=== PATIENT | male | born 1960 | race Caucasian/White ===

== ENCOUNTER → 2017-08-17 | Outpatient (CLI) | payer OTHER ==
[2017-08-13 14:52] VITALS: BMI 25.7
[2017-08-17 13:03] VITALS: BP 149/75; PULSE 85; RESP 20
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
== END | disposition home or self-care (01) ==
LOC: PNWHC3 12:30
PROVIDERS: ATTEND Anesthesiology
DX: G89.29 Other chronic pain (principal); M54.2 Cervicalgia; M51.26 Other intervertebral disc displacement, lumbar region; M51.36 Other intervertebral disc degeneration, lumbar region; K21.9 Gastro-esophageal reflux disease without esophagitis; I10 Essential (primary) hypertension; F17.200 Nicotine dependence, unspecified, uncomplicated; J43.9 Emphysema, unspecified; Z90.89 Acquired absence of other organs; Z98.890 Other specified postprocedural states; Z79.82 Long term (current) use of aspirin; Z79.51 Long term (current) use of inhaled steroids; Z88.8 Allergy status to other drugs, medicaments and biological substances; Z86.718 Personal history of other venous thrombosis and embolism; Z79.891 Long term (current) use of opiate analgesic; Z79.1 Long term (current) use of non-steroidal anti-inflammatories (NSAID); Z71.6 Tobacco abuse counseling
CPT/HCPCS: 99211

== ENCOUNTER → 2018-08-09 | Outpatient (CLI) | payer OTHER ==
--- NOTE | 2018-08-09 11:10 | CT ---
EXAMINATION TYPE: CT angio abdomen pelvis DATE OF EXAM: 08/09/2018 COMPARISON: None HISTORY: Blockage of iliac arteries CT DLP: 645 mGycm CONTRAST: CTA thoracic and abdominal aorta with 3-D reconstruction is performed without Oral Contrast and with IV Contrast, patient injected with 100 mL of Isovue 370. Contrast CTA of the abdominal aorta was performed from the lung apex through the base of the pelvis. 3-D reconstruction imaging obtained at a separate workstation. CONTRAST CT ABDOMEN AND PELVIS ABDOMINAL AORTA: Aortic bypass graft is in place and intact. Densely calcified false pass abdominal aorta . Bypass graft is patent common iliac arteries and external iliac arteries being patent. There is non opacification of the internal iliac arteries bilaterally. No evidence for aneurysm or leak. No fistul a identified. LIVER/GB- No significant abnormality is seen. PANCREAS- No significant abnormality is seen. SPLEEN- No significant abnormality is seen. ADRENALS- No significant abnormality is seen. KIDNEYS/BLADDER- No significant abnormality is seen. BOWEL-sigmoid diverticulosis without diverticulitis. No bowel obstruction. Postoperative changes righ t hemicolon. GENITAL ORGANS: No gross abnormality seen. LYMPH NODES- No greater than 1cm abdominal or pelvic lymph nodes areappreciated. OSSEOUS STRUCTURES- No significant abnormality is seen. OTHER-supraumbilical fat-containing hernia. Right periumbilical Hernia containing a short segment of small bowel. No definite evidence for strangulation at this time. Correlate clinically. IMPRESSION- 1. Aortic bypass graft is intact without evidence for leak or obstruction. There is nonopacification of the internal iliac arteries bilaterally as noted above. 2. Right-sided periumbilical hernia containing a short segment of small bowel.
== END ==
LOC: RADCTMAIN 08:16
PROVIDERS: ATTEND Thoracic Surgery (Cardiothoracic Vascular Surgery)
DX: I70.213 Atherosclerosis of native arteries of extremities with intermittent claudication, bilateral legs (principal); K42.9 Umbilical hernia without obstruction or gangrene; Z95.828 Presence of other vascular implants and grafts
CPT/HCPCS: 74174; Q9967

== ENCOUNTER 2020-06-02 12:01 | Emergency (ER) | payer OTHER ==
[2020-06-02 12:10] VITALS: RESP 20
[2020-06-02] MEDS ORDERED: MORPHINE SULFATE 4 MG/ML SYRINGE IVP STA ×2 (12:21→13:21)
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
[2020-06-02 12:44] LABS: Basophils # (A) 0.2 k/uL (0-0.2); Basophils % (A) 2 %; Eosinophils # (A) 0.4 k/uL (0-0.7); Eosinophils % (A) 3 %; Lymphocytes # (A) 4.8 k/uL (1.0-4.8); Lymphocytes % (A) 40 %; MCH 32.3 pg (25.0-35.0); Mean Platelet Volume 6.7; Monocytes # (A) 0.6 k/uL (0-1.0); Monocytes % (A) 5 %; Neutrophils # (A) 5.7 k/uL (1.3-7.7); Neutrophils % (A) 48 %; Platelet Count 223 k/uL (150-450); RBC 4.95 m/uL (4.30-5.90); RDW 12.6 % (11.5-15.5); WBC 11.8 k/uL (3.8-10.6)
[2020-06-02 12:46] LABS: Appearance,Urine Clear (Clear); Bilirubin,Urine Negative (Negative); Blood,Urine Negative (Negative); Color,Urine Yellow; Glucose,Urine (UA) Negative (Negative); Ketones,Urine Negative (Negative); Leukocyte Esterase,Urine Negative (Negative); Nitrite,Urine Negative (Negative); PH, Urine 5.5 (5.0-8.0); Protein,Urine Negative (Negative); Specific Gravity,Urine 1.028 (1.001-1.035); Urobilinogen,Urine <2.0 mg/dL (<2.0)
[2020-06-02 12:56] LABS: ALT 25 U/L (4-49); AST 21 U/L (17-59); African American GFR (CKD) >90 (>60 ml/min/1.73 sqM); Alkaline Phosphatase 82 U/L (38-126); Anion Gap 9 mmol/L; Blood Urea Nitrogen 20 mg/dL (9-20); Calcium 9.6 mg/dL (8.4-10.2); Carbon Dioxide 24 mmol/L (22-30); Chloride 105 mmol/L (98-107); Glucose 255 mg/dL (74-99); Magnesium 1.9 mg/dL (1.6-2.3); Non-African American GFR(CKD) >90 (>60 ml/min/1.73 sqM); Potassium 4.4 mmol/L (3.5-5.1); Sodium 138 mmol/L (137-145); Total Bilirubin 0.7 mg/dL (0.2-1.3); Total Protein 7.1 g/dL (6.3-8.2)
[2020-06-02 13:00] LABS: INR 0.9 (<1.2); Partial Thromboplastin Time 24.5 sec (22.0-30.0); Prothrombin Time 10.2 sec (9.0-12.0)
[2020-06-02] MEDS ORDERED: ONDANSETRON 4 MG/2 ML VIAL IVP STA (13:21)
--- NOTE | 2020-06-02 13:44 | CT ---
EXAMINATION TYPE: CT abdomen pelvis w con DATE OF EXAM: 06/02/2020 COMPARISON: CT 08/09/2018 HISTORY: Trauma to Right flank 2 days ago. increased pain today. CT DLP: 809.5 mGycm Automated exposure control for dose reduction was used. TECHNIQUE: Helical acquisition of images from the lung bases through the pelvis have been completed. CONTRAST: Performed without Oral Contrast and with IV Contrast, patient injected with 100 mL of Isovue 300. FINDINGS: LUNG BASES: No significant abnormality is appreciated. AORTA: Patient shows aortobifemoral bypass graft which is patent, there are surgical clips, atheroma tous change within the abdominal aorta LIVER/GB: Liver shows low attenuation likely due to hepatic steatosis. Gallbladder is within normal l imits. PANCREAS: No significant abnormality is seen. SPLEEN: No significant abnormality is seen. ADRENALS: No significant abnormality is seen. KIDNEYS: No significant abnormality is seen. REPRODUCTIVE ORGANS: No significant abnormality is seen BOWEL: Postop change noted at the level of the right colon, appendix is not seen. There is an anteri or abdominal wall hernia at multiple levels in the midline, bowel loop is coursing to the level of th e skin at the level of the umbilicus, there is no evident bowel obstruction, findings are similar to prior exam. Some colonic wall thickening is present in the rectosigmoid region. FREE AIR: No Free Air visible. ASCITES: None visible. PELVIC ADENOPATHY: None visualized. RETROPERITONEAL ADENOPATHY: No Retroperitoneal Adenopathy visible. URINARY BLADDER: No significant abnormality is seen. OSSEOUS STRUCTURES: Posterior 11th rib fracture is present without displacement on the right. IMPRESSION: MULTIPLE ANTERIOR ABDOMINAL WALL HERNIAS, SMALL BOWEL LOOP IS PRESENT AT THE UMBILICAL LEVEL WITHOUT EVIDENT OBSTRUCTION ON PREVIOUS EXAM. POSTOP CHANGES. PROBABLE HEPATIC STEATOSIS. NO FREE FLUID TO SUGGEST INTRA-ABDOMINAL INJURY, NO EVIDENT SOLID ORGAN INJURY. CORRELATE TO EXCLUDE COLITIS, DIFFICU LT TO EXCLUDE A MUCOSAL LESION ON THE BASIS OF THIS EXAM WITHIN THE RECTOSIGMOID COLON. Right 11th po sterior rib fracture.
--- NOTE | 2020-06-02 14:17 | XR ---
EXAMINATION TYPE: XR chest 2V DATE OF EXAM: 06/02/2020 COMPARISON: NONE HISTORY: Pain after a fall TECHNIQUE: 2 views FINDINGS: Heart and mediastinum are normal. Lungs are clear. Diaphragm is normal. Bony thorax appears normal. IMPRESSION: Normal chest.
[2020-06-02 14:36] VITALS: BP 144/65; PULSE 65; TEMP 98.3
== END 2020-06-02 14:37 | disposition home or self-care (01) ==
LOC: EC 12:01
DX: S22.31XA Fracture of one rib, right side, initial encounter for closed fracture (principal); J44.9 Chronic obstructive pulmonary disease, unspecified; K21.9 Gastro-esophageal reflux disease without esophagitis; F17.200 Nicotine dependence, unspecified, uncomplicated; Z79.899 Other long term (current) drug therapy; Z88.8 Allergy status to other drugs, medicaments and biological substances; Z91.048 Other nonmedicinal substance allergy status; Z90.49 Acquired absence of other specified parts of digestive tract; W00.0XXA Fall on same level due to ice and snow, initial encounter
CPT/HCPCS: 99284; 96374; 96375; 96376; 36415; 80053; 83735; 85025; 85610; 85730; 81003; 71046; 74177; J2270; J2405; Q9967

== ENCOUNTER 2021-08-30 03:37 | Observation (INO) | payer OTHER ==
[2021-08-30] MEDS ORDERED: ONDANSETRON 4 MG/2 ML VIAL IVP STA (03:51)
[2021-08-30] MEDS ORDERED: SODIUM CHLORIDE 0.9% 1,000 ML IV STA (03:51)
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
[2021-08-30] MEDS: MORPHINE SULFATE 4 MG/ML SYRINGE IV STA ×2 (04:31→04:36)
[2021-08-30 04:50] LABS: ALT 23 U/L (4-49); AST 23 U/L (17-59); African American GFR (CKD) >90 (>60 ml/min/1.73 sqM); Albumin 4.2 g/dL (3.5-5.0); Alkaline Phosphatase 98 U/L (38-126); Amylase 73 U/L (30-110); Anion Gap 8 mmol/L; Blood Urea Nitrogen 21 mg/dL (9-20); Calcium 9.4 mg/dL (8.4-10.2); Carbon Dioxide 25 mmol/L (22-30); Chloride 103 mmol/L (98-107); Glucose 206 mg/dL (74-99); Lipase 591 U/L (23-300); Non-African American GFR(CKD) >90 (>60 ml/min/1.73 sqM); Potassium 4.3 mmol/L (3.5-5.1); Sodium 136 mmol/L (137-145); Total Bilirubin 0.9 mg/dL (0.2-1.3); Total Protein 7.3 g/dL (6.3-8.2)
--- NOTE | 2021-08-30 05:06 | CT ---
EXAMINATION TYPE: CT abdomen pelvis w con DATE OF EXAM: 08/30/2021 COMPARISON: 06/02/2020 HISTORY: generalized abdominal pain x 5 days. prior on PACS. CT DLP: 719.7 mGycm Automated exposure control for dose reduction was used. CONTRAST: Performed with IV Contrast, patient injected with 100ml mL of Isovue 300. Images obtained from the diaphragm to the floor of the pelvis with IV contrast. The lung bases are clear. No pleural effusion. Heart size is normal. No pericardial effusion. Liver s pleen pancreas stomach and gallbladder appear normal. The bile ducts are not dilated. There is no adrenal mass. Kidneys show satisfactory contrast opacification. There is no hydronephrosi s. Ureters are not dilated. Bladder distends smoothly. Delayed images show normal renal excretion. Th ere is no retroperitoneal adenopathy. There is aortoiliac bypass graft. There is thrombosis apparentl y and previous bypass graft. There is thrombosis of the lower [place] iliac arteries. There is no retroperit love mass. The bladder distends smoothly. There is no inguinal hernia. No free fluid in the pelvis. There are surgical clips at the hepatic flexure of the colon. There is a periumbilical hernia that co ntains small bowel with some incarceration. No definite bowel obstruction. The lumbar vertebra show normal alignment. Disc spaces are normal. Bony pelvis is intact. The hip carly nts appear intact. IMPRESSION: Atherosclerotic vascular disease. Periumbilical incarcerated ventral hernia measures 3.5 x 2 cm and not significantly different than la st exam. No definite bowel obstruction. Previous right colon surgery. No acute abnormality of the abd omen and pelvis. No significant change compared to the old exam.
[2021-08-30 05:32] LABS: Basophils # (A) 0.1 k/uL (0-0.2); Basophils % (A) 1 %; Eosinophils # (A) 0.2 k/uL (0-0.7); Eosinophils % (A) 1 %; HGB 16.8 gm/dL (13.0-17.5); Lymphocytes # (A) 5.6 k/uL (1.0-4.8); Lymphocytes % (A) 33 %; MCH 32.7 pg (25.0-35.0); MCHC 33.6 g/dL (31.0-37.0); MCV 97.2 fL (80.0-100.0); Mean Platelet Volume 7.7; Monocytes # (A) 0.9 k/uL (0-1.0); Monocytes % (A) 5 %; Neutrophils # (A) 9.9 k/uL (1.3-7.7); Neutrophils % (A) 58 %; Platelet Count 222 k/uL (150-450); RBC 5.14 m/uL (4.30-5.90); RDW 12.9 % (11.5-15.5); WBC 16.9 k/uL (3.8-10.6)
[2021-08-30] MEDS ORDERED: HYDROmorphone 0.5 MG/0.5 ML SYRINGE IVP STA (05:36)
[2021-08-30] MEDS ORDERED: ONDANSETRON 4 MG/2 ML VIAL IVP PRN (05:52)
[2021-08-30] MEDS ORDERED: NALOXONE 0.4 MG/ML 1 ML VIAL IV PRN ×2 (05:52→09:05)
[2021-08-30] MEDS: SODIUM CHLORIDE 0.9% 1,000 ML IV SCH ×3 (07:16→23:42)
[2021-08-30 07:53] LABS: Appearance,Urine Clear (Clear); Bilirubin,Urine Negative (Negative); Blood,Urine Negative (Negative); Color,Urine Light Yellow; Glucose,Urine (UA) Negative (Negative); Ketones,Urine Negative (Negative); Leukocyte Esterase,Urine Negative (Negative); Nitrite,Urine Negative (Negative); PH, Urine 5.5 (5.0-8.0); Protein,Urine Negative (Negative); Urobilinogen,Urine <2.0 mg/dL (<2.0)
[2021-08-30 08:02] LABS: Specific Gravity,Urine >1.050 (1.001-1.035)
[2021-08-30] MEDS: HYDROmorphone 1 MG/ML 1 ML SYRINGE IVP PRN ×3 (08:38→20:31)
[2021-08-30] MEDS: NICOTINE 21MG/24HR PATCH TRANSDERM SCH (08:42)
[2021-08-30] MEDS ORDERED: HYDROcodone/APAP 5-325MG 1 EACH TAB PO PRN (09:05)
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
[2021-08-30] MEDS: lisinopriL 20 MG TAB PO SCH (16:26)
[2021-08-30] MEDS: atenoloL 50 MG TAB PO SCH (16:26)
[2021-08-30] MEDS: HEPARIN SODIUM,PORCINE/PF 5,000 UNIT/0.5 ML SYRINGE SQ SCH (16:26)
[2021-08-31] MEDS: HEPARIN SODIUM,PORCINE/PF 5,000 UNIT/0.5 ML SYRINGE SQ SCH ×4 (00:18→23:48)
[2021-08-31] MEDS: HYDROmorphone 1 MG/ML 1 ML SYRINGE IVP PRN ×5 (02:17→23:44)
[2021-08-31] MEDS: SODIUM CHLORIDE 0.9% 1,000 ML IV SCH ×3 (04:57→23:47)
--- NOTE | 2021-08-31 07:42 | XR ---
EXAMINATION TYPE: XR abdomen 2V DATE OF EXAM: 08/31/2021 COMPARISON: 08/30/2021 CT abdomen and pelvis INDICATION: Follow-up possible small bowel obstruction TECHNIQUE: Single view abdomen upright view. Additional supine views were obtained. FINDINGS: Colonic bowel gas is present. Nonspecific small bowel gas is present. No free air is under the diaphr agm. No suspicious air-fluid levels or differential air-fluid levels are present. Psoas margins are n ormal. Organomegaly is not present. There is a vascular stent within the mid abdomen. IMPRESSION: 1. Nonspecific abdomen. 2. No suspicious changes to suggest small bowel obstruction.
[2021-08-31] MEDS: lisinopriL 20 MG TAB PO SCH (08:11)
[2021-08-31] MEDS: NICOTINE 21MG/24HR PATCH TRANSDERM SCH (08:11)
[2021-08-31] MEDS: atenoloL 50 MG TAB PO SCH (08:11)
[2021-08-31 11:34] LABS: HCT 44.1 % (39.6-50.0); HGB 14.5 g/dL (13.0-17.0); MCH 31.9 pg (27.0-32.0); MCHC 32.9 g/dL (32.0-37.0); MCV 96.9 fL (80.0-97.0); Mean Platelet Volume 9.5 fL (9.5-12.2); NRBC Per 100 WBC 0 /100 WBCS (0.0-0.0); Platelet Count 195 X 10*3/uL (140-440); RBC 4.55 X 10*6/uL (4.40-5.60); RDW 12.1 % (11.5-14.5); WBC 14.88 X 10*3/uL (4.50-10.00)
[2021-08-31 11:44] LABS: African American GFR (CKD) 108.7 (60.0-200.0); Albumin 3.5 g/dL (3.8-4.9); Albumin/Globulin Ratio 1.59 (1.60-3.17); Anion Gap 9.9 mmol/L (10.00-18.00); BUN/Creat Ratio 11.56 Ratio (12.00-20.00); Blood Urea Nitrogen 10.4 mg/dL (9.0-27.0); Calcium 8.8 mg/dL (8.7-10.3); Carbon Dioxide 24.1 mmol/L (20.0-27.5); Globulin 2.2 g/dL (1.6-3.3); Non-African American GFR(CKD) 93.8 (60.0-200.0); Phosphorus 2.9 mg/dL (2.4-5.1); Potassium 4.3 mmol/L (3.5-5.5); Total Bilirubin 0.6 mg/dL (0.30-1.20); Total Protein 5.7 g/dL (6.2-8.2)
[2021-08-31 12:04] LABS: Basophils # (A) 0.05 X 10*3/uL (0.00-0.10); Basophils % (A) 0.3 %; Eosinophils # (A) 0.22 X 10*3/uL (0.04-0.35); Eosinophils % (A) 1.5 %; Immature Grans, Automated 0.5 %; Lymphocytes # (A) 7.23 X 10*3/uL (0.90-5.00); Lymphocytes % (A) 48.6 %; Monocytes # (A) 0.99 X 10*3/uL (0.20-1.00); Monocytes % (A) 6.7 %; Neutrophils # (A) 6.31 X 10*3/uL (1.80-7.70); Neutrophils % (A) 42.4 %
--- NOTE | 2021-08-31 13:06 | P.PN ---
Subjective Progress Note Date: 08/31/21 Principal diagnosis: Abdominal pain This is a 60-year-old male who presented to the hospital with complaints of abdominal pain. He reports that the pain started in the lower abdomen at his old incision site and movements to above the umbilicus. Patient reports that he has had pain for about 6 days. He reports increase in pain after eating. He has been dealing with constipation for the past 6 days. He took a laxative yesterday and was able to have a normal bowel movement. His past surgical history includes aortoiliac bypass graft with stent in the right groin, hernia repair and appendectomy. Patient had computed tomography scan abdomen and pelvis demonstrated. Umbilical incarcerated ventral hernia measuring 3.5 x 2 cm and not significant different the last exam. No evidence of bowel obstruction. 08/31/2021: Patient was seen and examined by surgical team and incarcerated ventral hernia was reduced. Patient reports that he is not having any significant pain as he was yesterday. He reports that he feels hunger pains he denies any nausea or vomiting and no fevers or chills. He is currently nothing by mouth awaiting surgical evaluation today. Objective - Vital Signs Vital signs: Vital Signs Temp 97.6 F 08/31/21 11:18 Pulse 51 L 08/31/21 11:18 Resp 18 08/31/21 11:18 BP 156/76 08/31/21 11:18 Pulse Ox 96 08/31/21 11:18 Intake & Output 08/30/21 08/31/21 08/31/21 18:59 06:59 18:59 Intake Total 1560 Balance 1560 Weight 73.482 kg Intake: Intake, IV Titration 1560 Amount Sodium Chloride 0.9% 1, 1560 000 ml @ 130 mls/hr IV . Q7H42M [facility] Rx#:[id number] Other: Voiding Method Toilet Toilet Urinal Urinal - Exam Vital signs reviewed and stable. General: Nontoxic, no distress and appears stated age. Derm: Skin warm and dry, normal coloration for ethnicity. Head: Atraumatic, normocephalic and symmetric. Eyes: EOMs intact, no lid lag, and anicteric sclera Mouth: no lip lesions, mucus membranes moist Cardiovascular: regular rate and rhythm with normal S1S2, no murmur, positive posterior tibial pulses bilaterally, and cap refill < 2 seconds. Lungs: Respirations even, regular, and unlabored on room air. Lungs CTA bilaterally, no rhonchi, no rales, no wheezing, and no accessory muscle usage. Abdominal: Bowel sounds present, abdomen soft, significant midline scarring from previous surgeries, tenderness to palpation to epigastric, umbilical, and hypogastric regions. no guarding, no appreciable organomegaly. Abdominal hernias present. Ext: ROM intact. No gross muscle atrophy, no edema, no contractures Neuro: Speech clear, face symmetrical and CN II-XII grossly intact with no noted focal neuro deficits Psych: Alert and oriented to person, place, time, and situation. Appropriate and pleasant affect. - Labs CBC & Chem 7: 08/31/21 06:20 08/31/21 06:20 Labs: Abnormal Lab Results - Last 24 Hours (Table) 08/31/21 08/31/21 Range/Units 06:20 06:20 WBC 14.88 H (4.50-10.00) X 10*3/uL Immature Gran # 0.08 H (0.00-0.04) X 10*3/uL Lymphocytes # 7.23 H (0.90-5.00) X 10*3/uL Anion Gap 9.90 L (10.00-18.00) mmol/L BUN/Creatinine Ratio 11.56 L (12.00-20.00) Ratio Glucose 152 H (70-110) mg/dL AST 13 L (14-35) U/L Total Protein 5.7 L (6.2-8.2) g/dL Albumin 3.5 L (3.8-4.9) g/dL Albumin/Globulin Ratio 1.59 L (1.60-3.17) g/dL Assessment and Plan Plan: Abdominal pain .Umbilical incarcerated ventral hernia measuring 2.5 x 2 cm that contains small bowel -CT abdomen and pelvis with contrast positive for periumbilical incarcerated ventral hernia measuring 3.5 cm x 2 cm with no definitive bowel obstruction. -Gen. surgery consulted and following. -Patient's hernia appears to be now reduced. And pain has improved. -abdominal x-rays this morning shows no evidence of obstruction -Symptomatic care and pain management. Patient is still using IV Dilaudid which will need to be weaned off -Continuous IV fluid hydration. Diet per general surgery team -Monitor I's and O's Hypertension -Monitor vital signs and continue daily medication regimen with atenolol and enalapril. Peripheral arterial disease History of DVT with watchman's device -Patient reports watchman's device/filter is still in place and was unclear ab out when it was placed -Resume aspirin when okay with surgical team The patient is admitted with an anticipated greater than 2 midnight stay for evaluation of abdominal pain with concerns of incarcerated hernia CODE STATUS: Full code DVT prophylaxis: Heparin and patient reports having an watchman's device Discussed with: Patient and RN Anticipated discharge date: Clinical course to determine Disposition: Awaiting surgical clearance for discharge.
--- NOTE | 2021-08-31 14:10 | P.PN ---
Subjective Progress Note Date: 08/31/21 CHIEF COMPLAINT: Bowel obstruction HISTORY OF PRESENT ILLNESS: The patient is a 60-year-old admitted with a ventral hernia including bowel obstruction. Reports doing well today. He is passing flatus. Resolved abdominal pain. He has food from home at bedside. ROS: No reports of nausea and vomiting. No fevers or chills. No new chest pain. No productive sputum PHYSICAL EXAM: VITAL SIGNS: Reviewed CONSTITUTIONAL: Well developed and in no acute distress. EYES: Conjuctivae without sclera icterus. Extraocular movements grossly intact. HEAD, EARS, NOSE, THROAT: Moist buccal mucosa. Head is atraumatic, normocephalic. Hears conversational speech. No nasal drainage. RESPIRATORY: Non-labored respirations and equal bilateral excursions. CARDIOVASCULAR: Palpable 2+ radial pulses. ABDOMEN: No peritonitis MUSCULOSKELETAL: No gross deformity of the lower extremities noted. No clubbing. No cyanosis. SKIN: Good skin turgor. Well perfused. NEUROLOGIC: Cranial nerves II through XII grossly intact. No focal or lateralizing signs. PSYCH: Appropriate affect. Alert and oriented to person, place and time. CLINICAL LABS: Reviewed. STUDIES: Abdominal xray reviewed without bowel obstruction. This is my independent interpretation ASSESSMENT: 1. Bowel obstruction PLAN: 1. May start diet. Objective - Vital Signs Vital signs: Vital Signs Temp 97.6 F 08/31/21 11:18 Pulse 51 L 08/31/21 11:18 Resp 18 08/31/21 11:18 BP 156/76 08/31/21 11:18 Pulse Ox 96 08/31/21 11:18 Intake & Output 08/30/21 08/31/21 08/31/21 18:59 06:59 18:59 Intake Total 1560 Balance 1560 Weight 73.482 kg Intake: Intake, IV Titration 1560 Amount Sodium Chloride 0.9% 1, 1560 000 ml @ 130 mls/hr IV . Q7H42M [facility] Rx#:[id number] Other: Voiding Method Toilet Toilet Urinal Urinal - Labs CBC & Chem 7: 08/31/21 06:20 08/31/21 06:20 Labs: Abnormal Lab Results - Last 24 Hours (Table) 08/31/21 08/31/21 Range/Units 06:20 06:20 WBC 14.88 H (4.50-10.00) X 10*3/uL Immature Gran # 0.08 H (0.00-0.04) X 10*3/uL Lymphocytes # 7.23 H (0.90-5.00) X 10*3/uL Anion Gap 9.90 L (10.00-18.00) mmol/L BUN/Creatinine Ratio 11.56 L (12.00-20.00) Ratio Glucose 152 H (70-110) mg/dL AST 13 L (14-35) U/L Total Protein 5.7 L (6.2-8.2) g/dL Albumin 3.5 L (3.8-4.9) g/dL Albumin/Globulin Ratio 1.59 L (1.60-3.17) g/dL
[2021-09-01] MEDS: SODIUM CHLORIDE 0.9% 1,000 ML IV SCH ×2 (05:32→12:08)
[2021-09-01] MEDS: HEPARIN SODIUM,PORCINE/PF 5,000 UNIT/0.5 ML SYRINGE SQ SCH ×2 (08:45→15:17)
[2021-09-01] MEDS: NICOTINE 21MG/24HR PATCH TRANSDERM SCH (08:45)
[2021-09-01] MEDS: atenoloL 50 MG TAB PO SCH (08:45)
[2021-09-01] MEDS: lisinopriL 20 MG TAB PO SCH (08:46)
[2021-09-01 11:42] VITALS: BP 176/92; PULSE 60; RESP 16; TEMP 98.4
[2021-09-01] MEDS: HYDROmorphone 1 MG/ML 1 ML SYRINGE IVP PRN ×2 (12:05→15:20)
--- NOTE | 2021-09-01 14:27 | P.PN ---
Subjective Progress Note Date: 09/01/21 CHIEF COMPLAINT: Bowel obstruction HISTORY OF PRESENT ILLNESS: The patient is a 60-year-old admitted with a ventral hernia including bowel obstruction. He tolerated regular diet. He is ready to go home. ROS: No reports of nausea and vomiting. No fevers or chills. No new chest pain. No productive sputum PHYSICAL EXAM: VITAL SIGNS: Reviewed CONSTITUTIONAL: Well developed and in no acute distress. EYES: Conjuctivae without sclera icterus. Extraocular movements grossly intact. HEAD, EARS, NOSE, THROAT: Moist buccal mucosa. Head is atraumatic, normocephalic. Hears conversational speech. No nasal drainage. RESPIRATORY: Non-labored respirations and equal bilateral excursions. CARDIOVASCULAR: Palpable 2+ radial pulses. ABDOMEN: No peritonitis. Reducible ventral hernia. MUSCULOSKELETAL: No gross deformity of the lower extremities noted. No clubbing. No cyanosis. SKIN: Good skin turgor. Well perfused. NEUROLOGIC: Cranial nerves II through XII grossly intact. No focal or laterali zing signs. PSYCH: Appropriate affect. Alert and oriented to person, place and time. CLINICAL LABS: Reviewed. WBC improving. ASSESSMENT: 1. Bowel obstruction PLAN: 1. Stable from surgical standpoint for discharge Objective - Vital Signs Vital signs: Vital Signs Temp 98.4 F 09/01/21 11:30 Pulse 60 09/01/21 11:30 Resp 16 09/01/21 11:30 BP 176/92 09/01/21 11:30 Pulse Ox 96 09/01/21 11:30 Intake & Output 08/31/21 09/01/21 09/01/21 18:59 06:59 18:59 Intake Total 1560 Balance 1560 Intake: Intake, IV Titration 1560 Amount Sodium Chloride 0.9% 1, 1560 000 ml @ 130 mls/hr IV . Q7H42M [facility] Rx#:[id number] Other: Voiding Method Toilet Toilet Toilet Urinal Urinal Urinal # Voids 4 - Labs CBC & Chem 7: 08/31/21 06:20 08/31/21 06:20
--- NOTE | 2021-09-01 15:18 | P.DS ---
Providers Date of admission: 08/30/21 05:53 Expected date of discharge: 09/01/21 Attending physician: Lara Mcwilliams MD Consults: 08/30/21 05:53 Consult Physician Routine Consulting Provider: Josse Hawkins Consult Reason/Comments: hernia Do you want consulting provider notified?: Yes Primary care physician: Stated None Hospital Course: Patient is a very pleasant 60-year-old male with a past medical history of peripheral arterial disease with reports of previous surgery to aorta secondary to severe atherosclerosis and stent to right groin, hernia with previous repair, hypertension, appendectomy, DVT with watchman's device placed, COPD with continued nicotine dependence, GERD, anxiety and depression. Patient presented to the emergency department with a chief complaint of severe abdominal pain accompanied by nausea. Patient reports he initially began having some abdominal discomfort a few days ago but thought this was secondary to constipation as he reports he went 4 days without having a bowel movement and then had a liquid/soft bowel movement yesterday which somewhat seemed to relieve the pain. However patient reports awakening with severe pain and nausea. Patient reports pain was so significant he had to pickler helper his daughter to take him to the hospital. Patient reports having a high pain tolerance and has even pulled his own teeth without medication, but states this pain was the worst pain he has felt. Patient reports initially it was felt to hypogastric region and radiated upwards into umbilical and epigastric regions. Patient denies any vomiting, fevers, chills, diaphoresis, dizziness, lightheadedness, chest pain, palpitations, shortness of breath, or experiencing any difficulties or changes in his urinary function. Patient underwent full evaluation in the emergency department. CBC revealed leukocytosis with WBC count of 16.9, hyperglycemia with glucose of 206, elevated lipase of 591, and negative UTI. CT abdomen and pelvis with contrast positive for periumbilical incarcerated ventral hernia measuring 3.5 cm x 2 cm with no definitive bowel obstruction and findings of atherosclerotic vascular disease. Patient was admitted under our services with consultation to general surgery. His pain was well-controlled with Dilaudid and Hiko as needed. His diet was advanced from nothing by mouth to clear liquid diet which she tolerated without any nausea or vomiting. His leukocytosis was thought to be reactive in nature, he had no signs of active infection and trended down with repeat CBC. General surgery was consulted with regard to his incarcerated periumbilical ventral hernia and recommended outpatient follow-up. He was cleared from a surgery standpoint. He was seen and examined on 09/01/2021. He reported well- controlled pain and no nausea or vomiting. He was tolerating his diet well. Patient was requesting discharge home. He was advised to follow-up with his PCP within 3 days of discharge. Follow-up with general surgery Dr. Hawkins within 1 week of discharge. Patient was prescribed at 3 day course of Hiko as needed for his pain. Patient verbalized understanding of the plan. This complex discharge took about 45 minutes to complete. General: [non toxic], [no distress], [appears at stated age] Derm: [warm], [dry] Head: [atraumatic], [normocephalic], [symmetric] Eyes: [EOMI], [no lid lag], [anicteric sclera] Mouth: [no lip lesion], [mucus membranes moist] Cardiovascular: [S1S2 reg], [no murmur] Lungs: [CTA bilateral], [no rhonchi, no rales] , [no accessory muscle use] Abdominal: [soft], [nontender to palpation], [no guarding], [slow bowel sounds but positive in all 4 quadrants] Ext: [no gross muscle atrophy], [no edema], [no contractures] Neuro: [no focal neuro deficits] Psych: [Alert], [oriented], [appropriate affect] Discharge diagnosis: #Abdominal pain #Periumbilical ventral hernia #Leukocytosis #Elevated lipase #Nicotine abuse Chronic conditions: Hypertension, PAD, history DVT with watchman device Pertinent Studies: CT abdomen and pelvis Abdominal x-ray Patient Condition at Discharge: Stable Plan - Discharge Summary Discharge Rx Participant: No New Discharge Prescriptions: New Nicotine 21Mg/24Hr Patch [Habitrol] 1 patch TRANSDERM DAILY #30 patch HYDROcodone/APAP 5-325MG [Hiko 5-325] 1 each PO Q4HR PRN #18 tab PRN Reason: Mild Pain Continue Enalapril [Vasotec] 10 mg PO DAILY atenoloL [Tenormin] 50 mg PO DAILY Cholecalciferol [Vitamin D3 (25 Mcg = 1000 Iu)] 50 mcg PO DAILY Discharge Medication List Enalapril [Vasotec] 10 mg PO DAILY 08/13/17 [History] Cholecalciferol [Vitamin D3 (25 Mcg = 1000 Iu)] 50 mcg PO DAILY 08/30/21 [History] atenoloL [Tenormin] 50 mg PO DAILY 08/30/21 [History] HYDROcodone/APAP 5-325MG [Hiko 5-325] 1 each PO Q4HR PRN #18 tab 09/01/21 [Rx] Nicotine 21Mg/24Hr Patch [Habitrol] 1 patch TRANSDERM DAILY #30 patch 09/01/21 [Rx] Follow up Appointment(s)/Referral(s): None,Stated [Primary Care Provider] - 1-2 days Josse Hawkins MD [Medical Doctor] - 1 Week Activity/Diet/Wound Care/Special Instructions: Diet: Clear liquid diet Follow-up with your PCP within 3 days of discharge. Follow-up with general surgery within 1 week of discharge. Please take all medications as advised. Come back to the ED or call 911 for worsening abdominal pain, intractable nausea and vomiting, fever greater than 100.4F. Discharge Disposition: HOME SELF-CARE
== END 2021-09-01 16:20 | disposition home or self-care (01) ==
LOC: EC 03:37 → 5NMEDONC 05:53
PROVIDERS: ADMIT Internal Medicine; ATTEND Internal Medicine
DX: K42.0 Umbilical hernia with obstruction, without gangrene (principal); I70.8 Atherosclerosis of other arteries; J43.9 Emphysema, unspecified; I10 Essential (primary) hypertension; K21.9 Gastro-esophageal reflux disease without esophagitis; I73.9 Peripheral vascular disease, unspecified; R73.9 Hyperglycemia, unspecified; K59.00 Constipation, unspecified; D72.829 Elevated white blood cell count, unspecified; R74.8 Abnormal levels of other serum enzymes; M25.551 Pain in right hip; M25.552 Pain in left hip; F17.200 Nicotine dependence, unspecified, uncomplicated; F31.9 Bipolar disorder, unspecified; F41.9 Anxiety disorder, unspecified; F41.0 Panic disorder [episodic paroxysmal anxiety]; Z79.899 Other long term (current) drug therapy; Z88.8 Allergy status to other drugs, medicaments and biological substances; Z90.49 Acquired absence of other specified parts of digestive tract; Z86.718 Personal history of other venous thrombosis and embolism; Z95.818 Presence of other cardiac implants and grafts; Z87.828 Personal history of other (healed) physical injury and trauma; Z95.828 Presence of other vascular implants and grafts; Z98.890 Other specified postprocedural states; Z82.3 Family history of stroke
CPT/HCPCS: 96376 ×4; 96361 ×3; 96372 ×3; 96374; 96375; 99285; 36415; 80053 ×2; 82150; 83605; 83690; 83735; 84100; 85025 ×2; 81003; 74019; 74177; G0378 ×3; S4990 ×3; J2405; J1170 ×4; Q9967; J1644 ×3

== ENCOUNTER 2022-01-25 13:03 | Emergency (ER) | payer OTHER ==
[2022-01-25 13:12] VITALS: BP 133/77; PULSE 77; RESP 18; TEMP 98.3
[2022-01-25] MEDS ORDERED: dexAMETHasone 2 MG TAB PO STA (13:38)
[2022-01-25] MEDS ORDERED: KETOROLAC 15 MG/ML 1 ML VIAL IM STA (13:38)
--- NOTE | 2022-01-25 14:03 | XR ---
EXAMINATION TYPE: XR thoracic spine 2V DATE OF EXAM: 01/25/2022 CLINICAL HISTORY: pain TECHNIQUE: Frontal, lateral, and swimmer's view of thoracic spine are obtained. COMPARISON: None. FINDINGS: Thoracic spine show satisfactory alignment without evidence of acute fracture or dislocatio n. Vertebral body heights are preserved. Disc spaces are well preserved. Visualized ribs are unrem arkable. IMPRESSION: No acute fracture or dislocation is seen in the thoracic spine. ICD 10 NO FRACTURE, INIT IAL EVALUATION
--- NOTE | 2022-01-25 14:04 | XR ---
EXAMINATION TYPE: XR lumbar spine 2 or 3V DATE OF EXAM: 01/25/2022 CLINICAL HISTORY: pain TECHNIQUE: Three views of the lumbar spine are submitted. COMPARISON: None. FINDINGS: There are 5 lumbar type vertebral bodies identified. The lumbar spine shows satisfactory alignment w ithout evidence of acute fracture or dislocation. Vertebral body heights are within normal limits. Mo derate degenerative narrowing L4-5 and L5-S1. Right iliac stent noted. The overlying soft tissue appe ars unremarkable. IMPRESSION: No acute fracture or dislocation is seen in the lumbar spine. ICD 10 NO FRACTURE, INITIAL EVALUATION
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
[2022-01-25] MEDS ORDERED: ACET/COD 300 MG/30 MG STARTER PACK 6 TAB BTL PO STA (14:44)
== END 2022-01-25 15:51 | disposition home or self-care (01) ==
LOC: EC 13:03
DX: S39.012A Strain of muscle, fascia and tendon of lower back, initial encounter (principal); I10 Essential (primary) hypertension; J44.9 Chronic obstructive pulmonary disease, unspecified; F17.200 Nicotine dependence, unspecified, uncomplicated; Z79.899 Other long term (current) drug therapy; Z88.8 Allergy status to other drugs, medicaments and biological substances; X50.0XXA Overexertion from strenuous movement or load, initial encounter; Y92.009 Unspecified place in unspecified non-institutional (private) residence as the place of occurrence of the external cause
CPT/HCPCS: 96372 ×2; 99283 ×2; 72070; 72100; J8540; J1885

== ENCOUNTER 2022-02-06 09:44 | Emergency (ER) | payer OTHER ==
[2022-02-06 10:28] VITALS: TEMP 98.2
[2022-02-06] MEDS ORDERED: SODIUM CHLORIDE 0.9% 1,000 ML IV STA (12:41)
[2022-02-06] MEDS ORDERED: RX INFO: IV CONTRAST WAS GIVEN 1 EACH MISC MISCELLANE PRN (12:42)
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
[2022-02-06 13:28] LABS: ALT 31 U/L (4-49); AST 29 U/L (17-59); African American GFR (CKD) >90 (>60 ml/min/1.73 sqM); Albumin 3.9 g/dL (3.5-5.0); Alkaline Phosphatase 87 U/L (38-126); Anion Gap 10 mmol/L; Blood Urea Nitrogen 12 mg/dL (9-20); Calcium 9.1 mg/dL (8.4-10.2); Carbon Dioxide 23 mmol/L (22-30); Chloride 101 mmol/L (98-107); Glucose 330 mg/dL (74-99); Non-African American GFR(CKD) >90 (>60 ml/min/1.73 sqM); Sodium 134 mmol/L (137-145); Total Bilirubin 0.5 mg/dL (0.2-1.3); Total Protein 6.5 g/dL (6.3-8.2)
[2022-02-06 13:30] LABS: Potassium 5.2 mmol/L (3.5-5.1)
[2022-02-06 13:33] LABS: Basophils # (A) 0.1 k/uL (0-0.2); Basophils % (A) 1 %; Eosinophils # (A) 0.3 k/uL (0-0.7); Eosinophils % (A) 2 %; HCT 43.3 % (39.0-53.0); HGB 14.5 gm/dL (13.0-17.5); Lymphocytes # (A) 5.8 k/uL (1.0-4.8); Lymphocytes % (A) 40 %; MCH 31.7 pg (25.0-35.0); MCHC 33.4 g/dL (31.0-37.0); MCV 94.7 fL (80.0-100.0); Mean Platelet Volume 7.9; Monocytes # (A) 0.9 k/uL (0-1.0); Monocytes % (A) 6 %; Neutrophils # (A) 7.2 k/uL (1.3-7.7); Neutrophils % (A) 50 %; Platelet Count 236 k/uL (150-450); RBC 4.57 m/uL (4.30-5.90); WBC 14.5 k/uL (3.8-10.6)
[2022-02-06 13:35] LABS: INR 0.9 (<1.2); Partial Thromboplastin Time 25.1 sec (22.0-30.0); Prothrombin Time 9.8 sec (9.0-12.0)
[2022-02-06 13:57] LABS: RBC Morphology Normal
[2022-02-06 15:44] VITALS: BP 204/67; PULSE 57; RESP 16
[2022-02-06] MEDS ORDERED: MORPHINE SULFATE 4 MG/ML SYRINGE IVP STA (16:02)
--- NOTE | 2022-02-06 16:06 | CT ---
EXAMINATION TYPE: CT angio lower extremity LT DATE OF EXAM: 02/06/2022 2:44 PM COMPARISON: CT abdomen pelvis August 30, 2021 HISTORY: Arterial insufficiency left leg CT DLP: 1132.9 mGycm Automated exposure control for dose reduction was used. TECHNIQUE: CT midabdomen and pelvis with bilateral lower extremity runoff is Performed without and wi th IV Contrast, patient injected with 100 mL of Isovue 370. 3D reconstructed images are created on an independent workstation and reviewed.. FINDINGS: VASCULAR: Redemonstration of aortobifemoral graft only partially imaged on this study that has no ceferino w or complete occlusion along the visualized portion until there is some reconstitution at the common femoral artery level bilaterally in the bilateral groin. Smaller patent vessels throughout the abdom inal mesentery are seen. There is satisfactory flow without significant stenosis or occlusion along the right superficial femo ral artery into the popliteal artery with good trifurcation and bifurcation. There is adequate two ve ssel flow in the right leg. There is good flow in the left superficial femoral artery into the popliteal artery with satisfactory bifurcation into anterior tibial and tibial peroneal trunks with subsequent occlusion of the tibial peroneal artery shortly after its origin below the knee axial image 343. There is some reconstitution distal to this axial image 355. Length of occlusion roughly 2.5 cm coronal image 87. There is good t hree-vessel flow in the mid left leg slightly better than on the left leg. There is then abrupt occlu cynthia of the anterior tibial artery axial image 446 just above the distal tibial metadiaphysis level. OTHER: Persistent [place] ventral wall hernias containing fat and tiny mesenteric vessels along wit h one portion containing nonobstructing small bowel loop near the umbilicus axial image 37. Moderate wall thickening in the sigmoid colon of the anterior pelvis is nonspecific finding. Similar appearance seen on prior CT. There is area of heterogeneity suspected diminished perfusion posterior lower pole right kidney axial image 10 noted. Both kidneys are not completely imaged. Entire abdomen not completely imaged. IMPRESSION: LIVER/GB: Cholecystectomy clips are redemonstrated. PANCREAS: No significant abnormality is seen. SPLEEN: No significant abnormality is seen. ADRENALS: No significant abnormality is seen. KIDNEYS: No significant abnormality is seen. BOWEL: Suboptimal evaluation of bowel without enteric contrast. No suspicious small or large bowel di latation is seen.. UTERUS/ADNEXA: Uterus is surgically absent or atrophic in appearance. LYMPH NODES: No greater than 1cm abdominal or pelvic lymph nodes are appreciated. OSSEOUS STRUCTURES: No significant abnormality is seen. Lower extremities: No significant abnormality. OTHER: No significant additional abnormality is seen. 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 Proximal abdominal aorta and proximal aortic graft are not completely imaged to completely assess. There is short segment complet e occlusion of the left tibial peroneal trunk after anterior tibial artery takeoff. There is complete occlusion of the distal anterior tibial artery just proximal to the distal tibial metaphysis. Results communicated to ordering ER physician via telephone at time of dictation.
[2022-02-06] MEDS ORDERED: HEPARIN SODIUM 1,000 UN/ML (10ML VL) IV PRN (16:37)
[2022-02-06] MEDS ORDERED: HEPARIN SODIUM 1,000 UN/ML (10ML VL) IV ONE (16:37)
[2022-02-06] MEDS ORDERED: HEPARIN SOD,PORK IN 0.45% NACL 25,000 UNIT in 0.45% NACL 1 250ML.BAG IV SCH (16:45)
== END 2022-02-06 17:49 | disposition other institution (70) ==
LOC: EC 09:44
DX: I70.212 Atherosclerosis of native arteries of extremities with intermittent claudication, left leg (principal); J44.9 Chronic obstructive pulmonary disease, unspecified; K21.9 Gastro-esophageal reflux disease without esophagitis; I10 Essential (primary) hypertension; F17.200 Nicotine dependence, unspecified, uncomplicated; Z88.8 Allergy status to other drugs, medicaments and biological substances
CPT/HCPCS: 36415; 80053; 85025; 85610; 85730; 73706; 99291; 96374; 96375; 96361; J2270; J1644; Q9967

== ENCOUNTER 2023-02-04 10:42 | Day surgery (SDC) | payer OTHER ==
[2023-01-29 12:09] VITALS: BMI 25.0
[~2023-02-04 10:42] MED LIST: ALPRAZolam 0.25 MG TAB PO PRN; ALPRAZolam 0.5 MG TAB PO PRN; ASPIRIN 325 MG TAB PO STA; HEPARIN SODIUM,PORCINE (1 ML) 2,500 UNIT in SODIUM CHLORIDE 0.9% 250 ML IRRIGATION PRN; HEPARIN SODIUM,PORCINE 10,000 UNIT in SODIUM CHLORIDE 0.9% 1,000 ML IRRIGATION PRN; NITROGLYCERIN SL TABS 0.4 MG TAB SUBLINGUAL PRN; SODIUM CHLORIDE 0.9% 1,000 ML in EMPTY BAG 1 BAG IV SCH
[2023-02-04 11:52] LABS: Glucose,Whole Blood 164 mg/dL (70-110)
[2023-02-04] MEDS ORDERED: SODIUM CHLORIDE 0.9% 1,000 ML IV ONE (11:57)
[2023-02-04 12:09] VITALS: RESP 16; TEMP 97.4
[2023-02-04] MEDS ORDERED: VERAPAMIL 2.5 MG/ML 2 ML AMP ONE ×2 (12:51→13:20)
[2023-02-04] MEDS ORDERED: fentaNYL (PF) 50 MCG/ML 2 ML AMP ONE (12:56)
[2023-02-04] MEDS: MIDAZOLAM 2 MG/2 ML VIAL IVP ONE ×3 (13:10→13:39)
[2023-02-04] MEDS: fentaNYL (PF) 50 MCG/ML 2 ML AMP IVP ONE ×2 (13:10→13:16)
[2023-02-04] MEDS: LIDOCAINE 1% INJ 10MG/ML (20 ML MDV) SQ ONE ×2 (13:11→13:30)
[2023-02-04] MEDS ORDERED: VERAPAMIL SYRINGE (5 MG/10 ML) INTRAARTER ONE ×2 (13:12→13:38)
[2023-02-04] MEDS ORDERED: HEPARIN SODIUM 1,000 UN/ML (10ML VL) ONE (13:14)
[2023-02-04] MEDS ORDERED: HEPARIN SODIUM 1,000 UN/ML (10ML VL) IV ONE (13:39)
[2023-02-04] MEDS ORDERED: IOPAMIDOL-370 100ML BTL INJ ONE (13:47)
--- NOTE | 2023-02-04 13:49 | P.CARDCATH ---
Description of Procedure: PROCEDURES PERFORMED: Bilateral coronary angiography, ultrasound guided arterial access INDICATION: Abnormal stress test CONSENT:I have discussed the risks, benefits and alternative therapies for the above-mentioned procedure and for both sedation/analgesia as well as necessary blood product administration, if indicated, as they pertain to this patient. The patient has indicated understanding and acceptance of the risks and procedures discussed. PROCEDURE: After the risks, benefits and alternatives of the above mentioned procedure explained in detail with the patient, informed consent was obtained. Patient was taken to the catheterization lab and prepped and draped in usual fashion. Ultrasound guidance was used to assess for arterial access. 1% lidocaine was used to anesthetize the right radial artery. A 6-[place] sheath was placed in the right radial artery using modified Seldinger technique and ultrasound guidance. There was difficulty passing a wire up the elbow and angiography showed a loop. We were able to engage the loop however unable to advance anything even advanced a BMW wire and therefore left ulnar approach recommended. 1% lidocaine was used to anesthetize the left ulnar artery. A 6- [place] sheath was placed in left ulnar artery due to concerns of left radial loop as well. Left coronary angiography was performed with a 5-[place] JL 3.5 catheter and right coronary angiography was performed with a 5-[place] JR5 catheter in various views. The right radial and left ulnar sheath was removed and a TR band was placed with hemostasis achieved. The patient tolerated the procedure well. Patient was transported back to the post catheterization holding area in stable condition. Conscious Sedation: Patient was monitored under the direct supervision of myself for conscious sedation using Versed and fentanyl for a total duration of 34 minutes HEMODYNAMICS: Aorta: 167/66 SELECTIVE CORONARY ARTERIOGRAPHY: LEFT MAIN: The left main is a large caliber vessel which trifurcates into the LAD, ramus and circumflex. There is no significant stenosis. LEFT ANTERIOR DESCENDING CORONARY ARTERY: LAD is a large caliber vessel which wraps around to the apex. There is a mild 20% LAD stenosis and otherwise normal. RAMUS INTERMEDIUS: The ramus is a small to moderate caliber vessel without significant stenosis LEFT CIRCUMFLEX CORONARY ARTERY: Left circumflex is a large caliber vessel which gives off the PDA and is the dominant vessel. There are mild luminal irregularities RIGHT CORONARY ARTERY: The right coronary artery is a small caliber vessel which gives off an acute marginal branch and is nondominant. There is no significant stenosis. FINAL IMPRESSION: 1. Relatively normal coronary arteries other then mild LAD 20% stenosis and mild luminal irregularities 2. Right radial loop with inability to advance wire or catheters from right radial approach PLAN: 1. Aggressive risk factor modification per most recent ACC/AHA guidelines. 2. Consider right ulnar approach for future procedures.
[2023-02-04 16:38] VITALS: BP 157/86; PULSE 63
[2023-02-04] MEDS ORDERED: HYDROcodone/APAP 5-325MG 1 EACH TAB PO STA (16:54)
[2023-02-04] MEDS ORDERED: HYDROcodone/APAP 5-325MG 1 EACH TAB ONE (16:56)
== END 2023-02-04 17:41 | disposition home or self-care (01) ==
LOC: CATHCVL 10:42
PROVIDERS: ATTEND Internal Medicine
DX: I25.10 Atherosclerotic heart disease of native coronary artery without angina pectoris (principal); I10 Essential (primary) hypertension; E78.5 Hyperlipidemia, unspecified; E11.9 Type 2 diabetes mellitus without complications; F17.210 Nicotine dependence, cigarettes, uncomplicated; Z79.02 Long term (current) use of antithrombotics/antiplatelets; Z79.899 Other long term (current) drug therapy; Z95.5 Presence of coronary angioplasty implant and graft; Z79.84 Long term (current) use of oral hypoglycemic drugs
CPT/HCPCS: 93454; 76937; C1769 ×3; C1894; J2250; J2001; J3010; J1644; Q9967

== ENCOUNTER 2023-03-14 09:08 | Emergency (ER) | payer OTHER ==
[2023-03-14 09:20] VITALS: PULSE 72; RESP 18
[2023-03-14] MEDS ORDERED: METOCLOPRAMIDE 5 MG/ML 2 ML VIAL IVP STA (09:57)
[2023-03-14] MEDS ORDERED: KETOROLAC 15 MG/ML 1 ML VIAL IVP STA (09:57)
[2023-03-14] MEDS ORDERED: SODIUM CHLORIDE 0.9% 1,000 ML IV STA (09:57)
[2023-03-14] MEDS ORDERED: diphenhydrAMINE 50 MG/ML 1 ML VIAL IVP STA (09:57)
[2023-03-14] MEDS ORDERED: DEXAMETHASONE SOD PHOSPHATE 10 MG/ML 1 ML VIAL IVP STA (09:57)
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
[2023-03-14 12:36] VITALS: BP 136/78; TEMP 98.4
== END 2023-03-14 12:23 | disposition home or self-care (01) ==
LOC: EC 09:08
DX: U07.1 COVID-19 (principal); J44.9 Chronic obstructive pulmonary disease, unspecified; E11.9 Type 2 diabetes mellitus without complications; K21.9 Gastro-esophageal reflux disease without esophagitis; E78.5 Hyperlipidemia, unspecified; I10 Essential (primary) hypertension; Z86.718 Personal history of other venous thrombosis and embolism; F41.9 Anxiety disorder, unspecified; F31.9 Bipolar disorder, unspecified; F17.200 Nicotine dependence, unspecified, uncomplicated; F12.90 Cannabis use, unspecified, uncomplicated; Z88.5 Allergy status to narcotic agent; Z88.8 Allergy status to other drugs, medicaments and biological substances; Z79.84 Long term (current) use of oral hypoglycemic drugs; Z79.82 Long term (current) use of aspirin; Z79.51 Long term (current) use of inhaled steroids; Z79.899 Other long term (current) drug therapy
CPT/HCPCS: 87636; 99284; 96374; 96375 ×3; 96361 ×2; J1200; J1100; J2765; J1885

== ENCOUNTER 2023-03-16 14:03 | Emergency (ER) | payer OTHER ==
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
[2023-03-16] MEDS ORDERED: methylPREDNISolone SOD SUCCI 125 MG/2 ML VIAL IM ONE (16:25)
[2023-03-16] MEDS ORDERED: diphenhydrAMINE 50 MG/ML 1 ML VIAL IM STA (16:25)
[2023-03-16 16:49] VITALS: BP 184/68; PULSE 86; RESP 18; TEMP 97.8
== END 2023-03-16 16:43 | disposition home or self-care (01) ==
LOC: EC 14:03
DX: U07.1 COVID-19 (principal); T39.8X5A Adverse effect of other nonopioid analgesics and antipyretics, not elsewhere classified, initial encounter; T78.3XXA Angioneurotic edema, initial encounter; J44.9 Chronic obstructive pulmonary disease, unspecified; E11.9 Type 2 diabetes mellitus without complications; I10 Essential (primary) hypertension; E78.5 Hyperlipidemia, unspecified; F17.200 Nicotine dependence, unspecified, uncomplicated; F12.90 Cannabis use, unspecified, uncomplicated; Z79.51 Long term (current) use of inhaled steroids; Z79.82 Long term (current) use of aspirin; Z79.84 Long term (current) use of oral hypoglycemic drugs; Z79.899 Other long term (current) drug therapy; Z86.59 Personal history of other mental and behavioral disorders; Z88.5 Allergy status to narcotic agent; Z88.8 Allergy status to other drugs, medicaments and biological substances; Z88.6 Allergy status to analgesic agent; Z90.49 Acquired absence of other specified parts of digestive tract
CPT/HCPCS: 99283; 96372 ×2; J1200; J2930

== ENCOUNTER → 2023-08-28 | Outpatient (CLI) | payer OTHER ==
--- NOTE | 2023-08-28 14:28 | XR ---
Left knee HISTORY: Pain without trauma. COMPARISON: None. TECHNIQUE: 3 views left knee were obtained. FINDINGS: There is a subtle area of increased density in the left distal femoral metaphysis with slight elevati on of the adjacent cortex on one projection only. It is doubtful that this represents a real scleroti c osseous lesion but but CT of the left knee is recommended to exclude an osseous mass. There is no fracture or dislocation or intra-articular body. There is no soft tissue abnormality. Impression: Cannot definitively exclude a sclerotic mass in the left femoral metaphysis. CT of the left knee and distal femur is recommended as described above.
== END | disposition home or self-care (01) ==
LOC: RADXRMAIN 11:47
PROVIDERS: ATTEND Internal Medicine
DX: M89.8X8 Other specified disorders of bone, other site (principal)

== ENCOUNTER → 2023-09-01 | Outpatient (CLI) | payer OTHER ==
--- NOTE | 2023-09-02 09:41 | US ---
EXAMINATION TYPE: US renals and bladder DATE OF EXAM: 09/01/2023 COMPARISON: CT CLINICAL INDICATION: Male, 62 years old with history of R10.9 UNSPECIFIED ABDOMINAL PAIN; Pt states l eft flank pain EXAM MEASUREMENTS: Right Kidney: 11.2 x 4.7 x 4.7 cm Left Kidney: 11.6 x 5.7 x 4.6 cm Right Kidney: wnl Left Kidney: ?possible dromedary hump mid Bladder: wnl Bilateral Jets seen: No IMPRESSION: 1. Unremarkable renal ultrasound
== END | disposition home or self-care (01) ==
LOC: RADUSWWP 09:44
PROVIDERS: ATTEND Internal Medicine
DX: R10.9 Unspecified abdominal pain (principal)
CPT/HCPCS: 76770

== ENCOUNTER → 2023-10-06 | Outpatient (CLI) | payer OTHER ==
--- NOTE | 2023-10-06 09:32 | CT ---
EXAMINATION TYPE: CT knee LT wo con CT DLP: 395 mGycm, Automated exposure control for dose reduction was used. DATE OF EXAM: 10/06/2023 7:04 AM COMPARISON: 02/06/2022 CLINICAL INDICATION:Male, 62 years old with history of M25.562 PAIN IN LEFT KNEE; PHH, Left knee pain TECHNIQUE: Axial images were obtained of the CT knee LT wo con, Additional coronal and sagittal refor matted images and soft tissue and bone window were obtained for review. 3-D reconstruction was create d on a separate workstation. Contrast used: mL of , (None if empty) Oral contrast used: (None if empty) FINDINGS: Mild degeneration changes with joint space narrowing most pronounced medially with tiny ost eophytes of the tibial plateau and patella. The ACL PCL collateral ligaments all appear intact the li mitations of CT. There is no evidence of fracture, subluxation, or dislocation. No significant soft tissue swelling or joint effusion is identified. No focal muscular atrophy or edema is identified. No radiopaque foreign body identified. IMPRESSION: 1. No evidence of fracture. 2. Mild degeneration changes of the knee.
== END | disposition home or self-care (01) ==
LOC: RADCTMAIN 05:47
PROVIDERS: ATTEND Internal Medicine
DX: M17.12 Unilateral primary osteoarthritis, left knee (principal)

== ENCOUNTER → 2023-10-29 | Outpatient (CLI) | payer OTHER ==
[2023-10-29 11:00] LABS: African American GFR (CKD) >90 (>60 ml/min/1.73 sqM); Blood Urea Nitrogen 17 mg/dL (9-20); Non-African American GFR(CKD) >90 (>60 ml/min/1.73 sqM)
--- NOTE | 2023-10-29 12:35 | CT ---
EXAMINATION TYPE: CT angio abdomen pelvis, without and with contrast DATE OF EXAM: 10/29/2023 COMPARISON: 02/06/2022 HISTORY: 62-year-old male I71.43 INFRARENAL ABDOMINAL AORTIC ANEURYSM, WITHO TECHNIQUE: Contiguous axial scanning of the abdomen and pelvis before and after administration of 100 ml Isovue-370 IV contrast. Delayed images through the the patient's stent graft and coronal/sagitta l reconstructions performed. 3-D reconstructions generated on a dedicated independent workstation. CT DLP: 1431 mGycm Automated exposure control for dose reduction was used. FINDINGS: Heart normal size without pericardial effusion. Lung bases clear without pleural effusion. No focal liver lesion or biliary ductal dilatation. Portal venous system is patent. Gallbladder, left kidney, spleen, and pancreas within normal limits. Unchanged cortical defect posterior right kidney suggesting sequela of prior vascular or infectious i nsult. Similar mild diffuse thickening of the adrenal glands without discrete nodularity. Redemonstrated supraumbilical midline incisional hernias containing predominantly omental fat and esdras suring up tor 5.3 cm wide. There is redemonstration of a herniated short segment small bowel loop jus t above the umbilicus as well, unchanged from 2021. No obstructive changes. No dilated small bowel, free fluid, or free air. No mesenteric or retroperitoneal lymphadenopathy. Mi [id number] stool in the distal sigmoid and rectum. There is possible moderate circumferential wal l thickening along the mid sigmoid colon. Unclear if this represents adherent stool material or mucos al abnormality. Previous partial right hemicolectomy with ileocolonic anastomosis at the ascending co sebastian. Redemonstrated aortobiiliac bypass graft. The celiac axis, SMA, and bilateral fernandez renal arterie s appear patent. The remainder of the bypass graft is patent. There is an anastomosis at the level of the proximal SFA's. Suspect retrograde filling to supply the PFAs. The SFAs within the proximal thighs are patent. Bones: Degenerative trace grade 1 retrolisthesis L2-L3, L3-L4, L4-L5. IMPRESSION: 1. PATENT AORTOBIILIAC BYPASS GRAFT. DISTAL ANASTOMOSES AT THE PROXIMAL SFAs. RETROGRADE FLOW TO SUPP LY THE PFA'S. 2. SUPRAUMBILICAL MIDLINE INCISIONAL HERNIAS CONTAINING OMENTAL FAT IS REDEMONSTRATED. ADDITIONAL HER NIATED SHORT SEGMENT SMALL BOWEL LOOP JUST ABOVE THE UMBILICUS, UNCHANGED FROM 2021. NO OBSTRUCTIVE C HANGES. 3. MODERATE CIRCUMFERENTIAL WALL THICKENING ALONG THE MID SIGMOID COLON. THE APPEARANCE MAY BE DUE TO ADHERENT STOOL MATERIAL. CLINICALLY CORRELATE TO THE NEED FOR DIRECT VISUALIZATION TO EXCLUDE A M UCOSAL LESION.
== END | disposition home or self-care (01) ==
LOC: RADCTMAIN 10:11
PROVIDERS: ATTEND Surgery
DX: I71.43 Infrarenal abdominal aortic aneurysm, without rupture (principal); K43.2 Incisional hernia without obstruction or gangrene
CPT/HCPCS: 82565; 84520; 74174; Q9967

== ENCOUNTER → 2023-11-12 | Outpatient (CLI) | payer OTHER ==
--- NOTE | 2023-11-12 10:43 | US ---
EXAMINATION TYPE: US scrotum with doppler. Grayscale and color Doppler Duplex imaging performed of t mikey scrotum. DATE OF EXAM: 11/12/2023 COMPARISON: NONE CLINICAL INDICATION: Male, 62 years old with history of N50.812 L TEST PAIN; Left testicle pain that radiates up to abdomen x months EXAM MEASUREMENTS: TESTICLES: Right Testicle: 3.9 x 2.8 x 2.2 cm Left Testicle: 3.0 x 2.5 x 1.7 cm EPIDIDYMIS HEAD: Right Epididymis: 0.8 cm Left Epididymis: 0.6 cm Doppler performed to assess for testicular vascularity; good bilateral color flow and waveforms are s een. There is no evidence of testicular torsion. Presence of hydroceles: No Presence of varicoceles: No IMPRESSION: 1. Unremarkable scrotal ultrasound.
== END | disposition home or self-care (01) ==
LOC: RADUSWWP 10:00
PROVIDERS: ATTEND Internal Medicine
DX: N50.812 Left testicular pain (principal)
CPT/HCPCS: 76870; 93975

== ENCOUNTER 2023-11-26 15:22 | Emergency (ER) | payer OTHER ==
[2023-11-26 15:33] VITALS: TEMP 98.1
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
[2023-11-26 16:24] LABS: Appearance,Urine Clear (Clear); Bilirubin,Urine Negative (Negative); Blood,Urine Negative (Negative); Color,Urine Light Yellow; Glucose,Urine (UA) 2+ (Negative); Ketones,Urine Negative (Negative); Leukocyte Esterase,Urine Negative (Negative); Nitrite,Urine Negative (Negative); Protein,Urine Negative (Negative); Specific Gravity,Urine 1.023 (1.001-1.035); Urobilinogen,Urine <2.0 mg/dL (<2.0)
[2023-11-26 16:35] LABS: Basophils # (A) 0.1 k/uL (0-0.2); Basophils % (A) 1 %; Eosinophils # (A) 0.3 k/uL (0-0.7); Eosinophils % (A) 3 %; HCT 49.1 % (39.0-53.0); HGB 16.4 gm/dL (13.0-17.5); Lymphocytes # (A) 4.9 k/uL (1.0-4.8); Lymphocytes % (A) 45 %; MCH 32.5 pg (25.0-35.0); MCHC 33.5 g/dL (31.0-37.0); MCV 97.1 fL (80.0-100.0); Mean Platelet Volume 6.7; Monocytes # (A) 0.7 k/uL (0-1.0); Monocytes % (A) 6 %; Neutrophils # (A) 4.9 k/uL (1.3-7.7); Neutrophils % (A) 45 %; Platelet Count 308 k/uL (150-450); RBC 5.06 m/uL (4.30-5.90); RDW 12.3 % (11.5-15.5); WBC 10.9 k/uL (3.8-10.6)
[2023-11-26 16:48] LABS: ALT 21 U/L (4-49); AST 23 U/L (17-59); African American GFR (CKD) >90 (>60 ml/min/1.73 sqM); Albumin 4.4 g/dL (3.5-5.0); Alkaline Phosphatase 64 U/L (38-126); Anion Gap 6 mmol/L; Blood Urea Nitrogen 15 mg/dL (9-20); Calcium 9.9 mg/dL (8.4-10.2); Carbon Dioxide 26 mmol/L (22-30); Chloride 107 mmol/L (98-107); Glucose 164 mg/dL (74-99); Lipase 77 U/L (23-300); Non-African American GFR(CKD) >90 (>60 ml/min/1.73 sqM); Potassium 4.7 mmol/L (3.5-5.1); Sodium 139 mmol/L (137-145); Total Bilirubin 0.6 mg/dL (0.2-1.3)
--- NOTE | 2023-11-26 17:59 | US ---
EXAMINATION TYPE: US abdomen limited DATE OF EXAM: 11/26/2023 COMPARISON: CT 10/29/2023 CLINICAL INDICATION: Male, 62 years old with history of ruq pain; Patient states RUQ pain for a while now. Patient states known abdominal hernia. Patient has had an appendectomy TECHNIQUE: Multiple sonographic images of the right upper quadrant are obtained. FINDINGS: EXAM MEASUREMENTS: Liver Length: 15.2 cm Gallbladder Wall: 0.2 cm CBD: 0.5 cm Right Kidney: 11.9 x 4.6 x 5.2 cm PORTABLE FEED MILL OPERATOR NOTES:Limited due to overlying bowel gas Pancreas: Obscured by bowel gas Liver: There is a 4mm echogenic area seen within the right lobe of the liver. Gallbladder: wnl as best seen today Evidence for sonographic Dominguez's sign: No CBD: wnl Right Kidney: No hydronephrosis or masses seen as best seen IMPRESSION: 1. Echogenic focus within the liver could reflect hemangioma.
[2023-11-26 18:22] VITALS: BP 158/86; PULSE 78; RESP 18
== END 2023-11-26 18:24 | disposition home or self-care (01) ==
LOC: EC 15:22
DX: R10.11 Right upper quadrant pain (principal); F17.200 Nicotine dependence, unspecified, uncomplicated; Z88.5 Allergy status to narcotic agent; Z88.8 Allergy status to other drugs, medicaments and biological substances; Z88.6 Allergy status to analgesic agent
CPT/HCPCS: 36415; 76705; 80053; 81003; 83690; 85025; 93005; 99284